=== PATIENT | male | born 1980 | race American Indian/Alaskan Native ===

== ENCOUNTER 2016-10-09 08:10 | Emergency (ER) | payer SELFPAY ==
[2016-10-09 08:24] VITALS: BP 162/80
--- NOTE | 2016-10-09 11:08 | XRay Report ---
X-RAY LEFT FEMUR TWO VIEWS: 10/09/16 08:10:00 CLINICAL: Leg pain. FINDINGS: Normal alignment at the hip and knee. No fracture. Normal soft tissues. IMPRESSION: Normal.
--- NOTE | 2016-10-09 18:24 | Emergency Department Report ---
Entered by ANTONIO MARIE, acting as scribe for TABATHA JOHN NP. ED Fall HPI - General Chief Complaint: Fall Stated Complaint: LEFT LEG PAIN /FALL Time Seen by Provider: 10/09/16 10:09 Source: patient Mode of arrival: Ambulatory - History of Present Illness Initial Comments: This is a 35 y/o male, nontoxic, well nourished in appearance, no acute signs of distress presents with left thigh pain status post fall yesterday at around 04:00. Associated symptoms include tingling sensation but he denies neck pain, back pain, chest pain, SOB, abdominal pain, LOC, head trauma, numbness, bruising or discoloration. Pain is described as aching and 4/10 on a severity scale. Patient states he slipped and fell on wet floor at [facility]. Patient stated he landed on his left thigh region and denies any other region. EMS was on scene but patient refused transport to hospital and states he was encouraged to come to ER if symptoms worsened. Patient denies any other trauma or complaints. Denies taking OTC meds. No alleviating factors despite soaking in epsom salts and no aggravating factors. NKDA. Ambulatory without difficulty. MD Complaint: fall Onset/Timin -: days(s) Fall From: standing When Fall Occurred: # days [employer] (1) Place Fall Occurred: other ([facility]) Loss of Consciousness: none Prolonged Down Time?: no Symptoms Prior to Fall: none Location: other (left thigh) Severity: mild Severity scale (0 -10): 4 Quality: aching Context: tripped/slipped Associated Symptoms: other (tinling sensation, denies: back pain, LOC, numbness , head trauma, bruising or discoloration). denies: neck pain, numbness, chest paint, shortness of breath, abdominal pain - Related Data Previous Rx's Medication Instructions Recorded Last Taken Type Ibuprofen [Motrin 600 MG tab] 600 mg PO Q8H PRN #30 tablet 10/09/16 Unknown Rx Allergies Allergy/AdvReac Type Severity Reaction Status Date / Time pecan nut AdvReac Hives Verified 10/09/16 08:17 ED Review of Systems Comment: All other systems reviewed and negative Constitutional: denies: chills, fever Eyes: denies: eye pain, eye discharge, vision change ENT: denies: ear pain, throat pain Respiratory: denies: shortness of breath Cardiovascular: denies: chest pain Endocrine: no symptoms reported Gastrointestinal: denies: abdominal pain Genitourinary: denies: as per HPI Musculoskeletal: other (left thigh pain, tingling sensation, denies: neck pain) . denies: back pain Skin: denies: other (brusing, discoloration) Neurological: denies: numbness, other (head trauma) Psychiatric: denies: anxiety, depression Hematological/Lymphatic: as per HPI ED Past Medical Hx - Past Medical History Additional medical history: obesity - Surgical History Additional Surgical History: none - Social History Smoking Status: Never Smoker Substance Use Type: Alcohol - Medications Home Medications: Home Medications Medication Instructions Recorded Confirmed Last Taken Type Ibuprofen [Motrin 600 MG tab] 600 mg PO Q8H PRN #30 tablet 10/09/16 Unknown Rx ED Physical Exam - General Limitations: No Limitations General appearance: alert, in no apparent distress - Head Head exam: Present: atraumatic, normocephalic - Eye Eye exam: Present: normal appearance, PERRL, EOMI. Absent: scleral icterus, conjunctival injection, nystagmus, periorbital swelling, periorbital tenderness Pupils: Present: normal accommodation - ENT ENT exam: Present: normal exam, normal orophraynx, TM's normal bilaterally, normal external ear exam - Neck Neck exam: Present: normal inspection, full ROM. Absent: tenderness, meningismus, lymphadenopathy, thyromegaly - Respiratory Respiratory exam: Present: normal lung sounds bilaterally. Absent: respiratory distress, wheezes, rales, rhonchi, stridor, chest wall tenderness, accessory muscle use, decreased breath sounds, prolonged expiratory - Cardiovascular Cardiovascular Exam: Present: regular rate, normal rhythm, normal heart sounds. Absent: bradycardia, tachycardia, irregular rhythm, systolic murmur, diastolic murmur, rubs, gallop - GI/Abdominal GI/Abdominal exam: Present: soft, normal bowel sounds. Absent: distended, tenderness, guarding, rebound, rigid, diminished bowel sounds - Rectal Rectal exam: Present: deferred - Extremities Exam Extremities exam: Present: normal inspection, full ROM, normal capillary refill. Absent: tenderness, pedal edema, joint swelling, calf tenderness - Expanded Lower Extremity Exam Left Hip exam: Present: normal inspection, full ROM. Absent: tenderness, swelling, abrasion Upper Leg exam: Present: normal inspection, full ROM. Absent: tenderness, swelling, abrasion, laceration, ecchymosis, deformity, crepidus, dislocation, erythema Knee exam: Present: normal inspection, full ROM, full knee extension. Absent: tenderness, swelling, abrasion, laceration, ecchymosis, deformity, crepidus, dislocation, erythema, effusion, pain w/ pronation/supination, posterior draw sign, pain/laxity with valgus, pain/laxity with varus Lower Leg exam: Present: normal inspection, full ROM. Absent: tenderness, swelling, abrasion, laceration, ecchymosis, deformity, crepidus, dislocation, erythema, palpable cord, Tray's sign Ankle exam: Present: normal inspection, full ROM. Absent: tenderness, swelling , abrasion, laceration, ecchymosis, deformity, crepidus, dislocation, erythema, anterior draw sign Foot/Toe exam: Present: normal inspection, full ROM. Absent: tenderness, swelling, abrasion, laceration, ecchymosis, deformity, crepidus, dislocation, erythema, amputation, puncture wound, foreign body, calcaneal tenderness, tenderness at base of 5th metatarsal, nail avulsion, subungual hematoma Neuro vascular tendon exam: Present: no vascular compromise. Absent: pulse deficit, abnormal cap refill, motor deficit, sensory deficit, tendon deficit, extremity cold to touch, pallor, decreased fine/light touch, foot drop, peroneal nerve deficit, significant pain with passive ROM of distal joint Gait: Positive: observed and normal 1 - pain - Back Exam Back exam: Present: normal inspection, full ROM. Absent: tenderness, CVA tenderness (R), CVA tenderness (L), muscle spasm, paraspinal tenderness, vertebral tenderness, rash noted - Neurological Exam Neurological exam: Present: alert, oriented X3, CN II-XII intact, normal gait, reflexes normal. Absent: abnormal gait - Psychiatric Psychiatric exam: Present: normal affect, normal mood - Skin Skin exam: Present: warm, dry, intact, normal color. Absent: rash ED Course Vital Signs 10/09/16 08:20 Temperature 98.4 F Pulse Rate 66 Respiratory 17 Rate Blood Pressure 162/80 O2 Sat by Pulse 100 Oximetry - Reevaluation(s) Reevaluation #1: 10/09/16 10:37 Patient is able speak full sentences with no signs of distress. ED Medical Decision Making - Medical Decision Making ED course; this is a 35-year-old male that presents with left femur contusion 1- patient was examined myself. An x-ray has been obtained a left femur with negative findings of any fractures or any other abnormalities. Dictated by radiologist. Patient was notified of x-ray findings with no further questioned by the patient. 2- patient received ibuprofen of discharge 3- patient was instructed to follow-up with Dr. Greenwood/primary care doctor in 3- 5 days or if symptoms worsen or continue return to emergency room as soon as possible. 4- patient was also instructed to rest, elevate and ice extremity. ED Disposition Clinical Impression: Contusion Qualifiers: Encounter type: initial encounter Contusion area: lower leg Laterality: left Qualified Code(s): S80.12XA - Contusion of left lower leg, initial encounter Disposition: DC- TO HOME OR SELFCARE Is pt being admited?: No Does the pt Need Aspirin: No Condition: Stable Instructions: Contusion in Adults (ED), Ibuprofen (By mouth) Additional Instructions: Follow-up with Dr. Greenwood/ana lilia about there in 3-5 days or symptoms worsen or continue return to emergency room as soon as possible. Rest, elevate, ice extremity Prescriptions: Ibuprofen [Motrin 600 MG tab] 600 mg PO Q8H PRN #30 tablet PRN Reason: Pain Referrals: PRIMARY CARE, [Primary Care Provider] - 3-5 Days RON GREENWOOD MD [Staff Physician] - 3-5 Days [facility] [Outside] - 3-5 Days [facility] [place] [facility] [place] - 3-5 Days This documentation as recorded by the CYNTHIA alvarado ELIZABETH,accurately reflects the service I personally performed and the decisions made by me,TABATHA JOHN, DEBBI.
== END 2016-10-09 11:21 | disposition home or self-care (01) ==
LOC: ED 08:10
DX: S80.12XA Contusion of left lower leg, initial encounter (principal); Z91.018 Allergy to other foods; W19.XXXA Unspecified fall, initial encounter; Y93.89 Activity, other specified; Y99.8 Other external cause status; Y92.59 Other trade areas as the place of occurrence of the external cause